=== PATIENT | male | born 1955 | race Caucasian/White ===

== ENCOUNTER 2023-01-25 12:46 | Outpatient (CLI) | payer MEDICARE, SELFPAY ==
--- NOTE | ~2023-01-25 | XR_ITS ---
EXAMINATION: XR lumbar spine 2-3V DATE: 01/25/2023 13:25 INDICATION: Low back pain TECHNIQUE: Anteroposterior and lateral views of the lumbar spine, and cone-down lateral view of the l umbosacral junction were obtained. COMPARISON: None. FINDINGS: Bone alignment is normal. There is no fracture. There is severe loss of intervertebral disc space height at L4-5 and moderate loss of intervertebral disc space height throughout the remainder of the lumbar spine. The vertebral body heights are maintained. There is severe facet joint osteoarth ritis of the lower lumbar spine. Small degenerative osteophytes project from the anterior endplates o f multiple vertebral bodies. A moderate volume of colonic stool is present. Pleural calcification is seen at the right lung base. IMPRESSION: 1. Severe lumbar spondylosis without acute findings. Reviewed, dictated and finalized at location A.
--- NOTE | ~2023-01-25 | XR_ITS ---
EXAMINATION:XR_[id number]_CR DATE: 01/25/2023 13:25 INDICATION: Neck pain TECHNIQUE: AP, lateral, and odontoid views of the cervical spine are provided. COMPARISON: None FINDINGS: There are 2 mm of retrolisthesis of C5 on C6. The odontoid process is intact. No fracture i s identified. Vertebral body heights are maintained. There is severe loss of intervertebral disc spac e height at C5-C6 and C6-7 and moderate loss of intervertebral disc space height at C3-4. There is mu ltilevel moderate facet and uncovertebral joint osteoarthritis. Prevertebral soft tissues are normal. Degenerative osteophytes project from the anterior endplates of multiple vertebral bodies. IMPRESSION: 1. Severe cervical spondylosis without acute findings. Reviewed, dictated and finalized at location A.
--- NOTE | ~2023-01-25 | CT_ITS ---
EXAMINATION: CT lung screening DATE: 01/25/2023 13:03 INDICATION: Personal history of nicotine dependence, current smoker with 100 pack year history TECHNIQUE: Computed tomography (CT) of the chest was performed without intravenous contrast. The dose -length product (DLP) was 135.46 mGy-cm. Automated exposure control and iterative reconstruction tech [employer] were employed. COMPARISON: None FINDINGS: There is scarring in the lung apices. There is a 2 mm nodule in the left lower lobe on imag e 67. There is a 3 mm nodule in the right lower lobe on image 87. There is a 4 mm nodule of the right middle lobe on image 86. There are patchy groundglass opacities of the right upper lobe. An approxim ately 1.7 cm nonsolid nodule is present on image 36. There is a 2.4 cm nonsolid nodule of the right u pper lobe on image 46. No pleural effusion or pneumothorax. No pathologically enlarged thoracic lymph nodes are identified. The heart size is normal. Calcified coronary artery atherosclerosis is noted. There is moderate thoracic spondylosis. There is a large calcified pleural plaque abutting the right hemidiaphragm which could reflect prior trauma or infection. IMPRESSION: 1. Lung-RADS category 2: Benign appearance or behavior. Continue annual screening with noncontrast lo w-dose chest CT in 12 months. Reviewed, dictated and finalized at location A. IMPRESSION: 1. Lung-RADS category 2: Benign appearance or behavior. Continue annual screeni ng with noncontrast low-dose chest CT in 12 months.
== END 2023-01-25 12:47 ==
PROVIDERS: PCP Emergency Medicine; Visit Provider Emergency Medicine
DX: Z12.2 Encounter for screening for malignant neoplasm of respiratory organs (principal); M54.2 Cervicalgia; M43.02 Spondylolysis, cervical region; M43.06 Spondylolysis, lumbar region; Z87.891 Personal history of nicotine dependence
CPT/HCPCS: 71271; 72040; 72100

== ENCOUNTER 2023-03-27 12:36 | Emergency (ER) | payer MEDICARE, SELFPAY ==
[2023-03-27 12:53] VITALS: BP 115/61; PULSE 72; RESP 18; TEMP 36.8; O2SAT 98
--- NOTE | 2023-03-27 13:11 | ED.WOUNDLAC ---
HPI - Wound/Laceration General Chief Complaint: Wound/Laceration Stated Complaint: finger laceration Time Seen by Provider: 03/27/23 13:06 Source: patient, family () and RN notes reviewed Mode of arrival: ambulatory Limitations: no limitations History of Present Illness HPI narrative: Patient presents today complaining of a laceration to his right thumb that was sustained approximately 1 hour prior to exam when he accidentally cut himself with a razor blade at home. Currently rates his pain 3/10. Patient takes aspirin and Brilinta. Denies numbness or tingling. Related Data Home Medications Medication Instructions Recorded Confirmed aspirin 81 mg tablet,delayed 81 mg PO DAILY 01/17/23 01/26/23 release atorvastatin 40 mg tablet (Lipitor) 40 mg PO DAILY 01/17/23 01/26/23 carvedilol 6.25 mg tablet 6.25 mg PO Q12H 01/17/23 01/26/23 levothyroxine 150 mcg tablet 150 mcg PO DAILY 01/17/23 01/26/23 lisinopril 5 mg tablet 5 mg PO DAILY 01/17/23 01/26/23 omeprazole 20 mg capsule,delayed 20 mg PO DAILY 01/17/23 01/26/23 release ticagrelor 90 mg tablet (Brilinta) 90 mg PO Q12H 01/17/23 01/26/23 Allergies Allergy/AdvReac Type Severity Reaction Status Date / Time No Known Allergies Allergy Verified 01/26/23 11:20 Review of Systems Review of Systems: CONSTITUTIONAL: Denies body aches, fever, chills, or sweats. EYES: Denies visual changes, redness, or discharge. ENT: Denies rhinorrhea, congestion, sore throat, or otalgia. CARDIOVASCULAR: Denies chest pain, palpitations, or edema. RESPIRATORY: Denies cough or dyspnea. GASTROINTESTINAL: Denies abdominal pain, nausea, vomiting, or diarrhea. GENITOURINARY: Denies dysuria or hematuria. SKIN: + right thumb laceration MUSCULOSKELETAL: Denies back pain, joint pain, or myalgia. NEUROLOGIC: Denies headache, numbness, tingling, or weakness. PSYCH: Denies depression or anxiety. [facility] Past Medical History Medical History Arthritis Asthma CAD (coronary artery disease) COPD (chronic obstructive pulmonary disease) GERD (gastroesophageal reflux disease) Heart attack Heart disease History of placement of stent in LAD coronary artery Thyroid disorder Surgical History Surgical History H/O shoulder surgery Family History Family History Other Cerebrovascular accident Depression Diabetes mellitus Social History Social History Smoking status: Current every day smoker Tobacco type: cigarettes Alcohol intake: current Drinks per week: 1 Alcohol use details: beer Substance use: never Substance use type: does not use Lack of Transportation: No Lack of Food: Never True Current Housing: I Have Housing Concerned About Future Housing: No Difficulty Paying Gas/Electric Bills: No Difficulty Paying for Meds: No Currently Unemployed: No Education: High School Diploma/GED Difficulty w/ Childcare or Family Care: No Comments At time of signature, I have reviewed and agree with nursing past medical, surgical, social and family history unless otherwise noted. Please see nursing chart for further information. There is no relevant family history pertinent to the presenting complaint Exam Narrative: GENERAL: Well-appearing, well-nourished, and in no acute distress. HEAD: Normocephalic, atraumatic. EYES: EOMI. No redness or drainage. Conjunctivae normal. ENT: Mucous membranes pink and moist. NECK: Normal AROM. CHEST: No respiratory distress. EXTREMITIES: Normal range of motion. No edema. SKIN: Warm, dry, no rash. Capillary refill normal. Normal skin turgor. 1.5 cm partial-thickness linear laceration to the palmar aspect of the right 1st distal phalanx. Distal sensation intact. Capillary refill normal
[2023-03-27] MEDS: TETANUS,DIPHTHERIA,AC PERTUSSIS ADULT (0.5 ML) BOOSTRIX IM (13:17)
[2023-03-27] MEDS: LIDOCAINE HCL 1% PF INJ 5 ML VIAL 2 ML INFILTRATE (13:26)
== END 2023-03-27 13:44 | disposition home or self-care (01) ==
PROVIDERS: Emergency Provider Nurse Practitioner; PCP Emergency Medicine
DX: S61.011A Laceration without foreign body of right thumb without damage to nail, initial encounter (principal); W26.8XXA Contact with other sharp object(s), not elsewhere classified, initial encounter; Z23 Encounter for immunization; M19.90 Unspecified osteoarthritis, unspecified site; I25.10 Atherosclerotic heart disease of native coronary artery without angina pectoris; J44.9 Chronic obstructive pulmonary disease, unspecified; K21.9 Gastro-esophageal reflux disease without esophagitis; I25.2 Old myocardial infarction; Z95.5 Presence of coronary angioplasty implant and graft; F17.210 Nicotine dependence, cigarettes, uncomplicated; Z79.82 Long term (current) use of aspirin
CPT/HCPCS: 12001; 90471; 90715; 99212; G0463

== ENCOUNTER 2023-04-04 16:16 | Emergency (ER) | payer MEDICARE, SELFPAY ==
[2023-04-04 16:22] VITALS: BP 130/67; PULSE 92; RESP 16; TEMP 36.7; O2SAT 99
--- NOTE | 2023-04-04 16:26 | ED.SKABFB ---
HPI - Skin/Abscess/Foreign Bdy General Chief complaint: Skin/Abscess/Foreign Body Stated complaint: Thumb Rt Hand Time Seen by Provider: 04/04/23 16:25 Source: patient Mode of arrival: ambulatory Limitations: no limitations History of Present Illness HPI narrative: Ramiro is a 67-year-old male patient presenting to the clinic today with complaints of pain around the surgical site of his right thumb. He reports that he cut his right thumb last Monday and had sutures placed here in the clinic. Reports that he cut the sutures out today himself and has some pain to the surgical site. He reports that the site is hard to touch and appears to be discolored. He is concerned that it may be infected. Related Data Home Medications Medication Instructions Recorded Confirmed aspirin 81 mg tablet,delayed 81 mg PO DAILY 01/17/23 01/26/23 release atorvastatin 40 mg tablet (Lipitor) 40 mg PO DAILY 01/17/23 01/26/23 carvedilol 6.25 mg tablet 6.25 mg PO Q12H 01/17/23 01/26/23 levothyroxine 150 mcg tablet 150 mcg PO DAILY 01/17/23 01/26/23 lisinopril 5 mg tablet 5 mg PO DAILY 01/17/23 01/26/23 omeprazole 20 mg capsule,delayed 20 mg PO DAILY 01/17/23 01/26/23 release ticagrelor 90 mg tablet (Brilinta) 90 mg PO Q12H 01/17/23 01/26/23 Allergies Allergy/AdvReac Type Severity Reaction Status Date / Time No Known Allergies Allergy Verified 01/26/23 11:20 Review of Systems Review of Systems: Pertinent positives per HPI. Patient denies any fever, chills, rash, headache, visual changes, dizziness, cough, runny nose, sore throat, shortness of breath, chest pain, palpitations, nausea, vomiting, diarrhea, constipation, abdominal pain, or any urinary issues. [facility] Past Medical History Medical History Arthritis Asthma CAD (coronary artery disease) COPD (chronic obstructive pulmonary disease) GERD (gastroesophageal reflux disease) Heart attack Heart disease History of placement of stent in LAD coronary artery Thyroid disorder Surgical History Surgical History H/O shoulder surgery Family History Family History Other Cerebrovascular accident Depression Diabetes mellitus Social History Social History Smoking status: Current every day smoker Tobacco type: cigarettes Alcohol intake: current Drinks per week: 1 Alcohol use details: beer Substance use: never Substance use type: does not use Lack of Transportation: No Lack of Food: Never True Current Housing: I Have Housing Concerned About Future Housing: No Difficulty Paying Gas/Electric Bills: No Difficulty Paying for Meds: No Currently Unemployed: No Education: High School Diploma/GED Difficulty w/ Childcare or Family Care: No Comments At the time of my signature, I reviewed and agree with the nursing past medical, surgical, social, and family history. There is no relevant family history pertinent to the patient complaint. Exam Narrative: General: Well-developed, well nourished, in no apparent distress Head: Normocephalic, atraumatic. Cardio: Regular rate and rhythm, s1 and s2 normal, no murmur appreciated. Resp: Clear to auscultation bilaterally, no rhonchi, rales, wheezing or rubs. Integumentary: [place], warm, and dry, callused area to the right thumb with mild green discoloration(old bruising appearance) with tenderness to palpation, without redness, erythema, or drainage Course Course Emergency Course: Portions of this record may have been created with voice recognition software. Level of Care: Express Care Visit Vital Signs Vital signs: Vital Signs Temperature 36.7 C 04/04/23 16:22 Pulse Rate 92 04/04/23 16:22 Respiratory Rate 16 04/04/23 16:22 Blood Pressure 130/67 10/3
== END 2023-04-04 16:33 | disposition home or self-care (01) ==
PROVIDERS: Emergency Provider Nurse Practitioner Family; PCP Emergency Medicine
DX: G89.18 Other acute postprocedural pain (principal); M19.90 Unspecified osteoarthritis, unspecified site; I25.10 Atherosclerotic heart disease of native coronary artery without angina pectoris; K21.9 Gastro-esophageal reflux disease without esophagitis; I25.2 Old myocardial infarction; Z95.5 Presence of coronary angioplasty implant and graft; E07.9 Disorder of thyroid, unspecified; F17.210 Nicotine dependence, cigarettes, uncomplicated; Z79.82 Long term (current) use of aspirin
CPT/HCPCS: 99213; G0463

== ENCOUNTER 2025-05-05 13:26 | Emergency (ER) | payer MEDICARE, SELFPAY ==
--- NOTE | ~2025-05-05 | US_ITS ---
EXAMINATION: US venous doppler LE RT, 05/05/2025 14:57 GREENHOUSE ASSISTANT HISTORY: rule out DVT Comparison: None Technique: Lowery-scale and color Doppler images were attempted of the lower saphenofemoral junction, common femoral vein,superficial femoral vein, proximal deep femoral vein, proximal deep femoral vein, popliteal vein and posterior tibial veins. Findings: Deep Venous System:Normal flow, augmentation and compressibility. No echogenic thrombus identified. The contralateral saphenofemoral junction appears unremarkable. Superficial Venous SystemNo superficial thrombophlebitis. Soft tissues: Soft tissues are unremarkable. Impression: Negative for DVT. Reviewed, dictated and finalized at location P. NHOUSE ASSISTANT Impression: Negative for DVT.
[2025-05-05 13:27] VITALS: BP 112/52; PULSE 93; RESP 16; TEMP 36.4; O2SAT 100
--- NOTE | 2025-05-05 19:12 | ED.EXTPRO ---
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 No recent trauma Related Data Home Medications ?Medication ?Instructions ?Recorded ?Confirmed ?Last Taken ?Type aspirin 81 mg tablet,delayed 81 mg PO DAILY 01/17/23 05/18/23 Unknown History release atorvastatin 40 mg tablet (Lipitor) 40 mg PO DAILY 01/17/23 05/18/23 Unknown History carvedilol 6.25 mg tablet 6.25 mg PO Q12H 01/17/23 05/18/23 Unknown History lisinopril 5 mg tablet 5 mg PO DAILY 01/17/23 05/18/23 Unknown History omeprazole 20 mg capsule,delayed 20 mg PO DAILY 01/17/23 05/18/23 Unknown History release ticagrelor 90 mg tablet (Brilinta) 90 mg PO Q12H 01/17/23 05/18/23 Unknown History levothyroxine 50 mcg tablet 50 mcg PO DAILY 05/16/23 05/18/23 Unknown History Allergies Allergy/AdvReac Type Severity Reaction Status Date / Time No Known Allergies Allergy Verified 05/16/23 09:53 Review of Systems Review of Systems: All systems reviewed & are unremarkable except as noted in HPI and below PMFSH Past Medical History Medical History Arthritis Asthma CAD (coronary artery disease) COPD (chronic obstructive pulmonary disease) GERD (gastroesophageal reflux disease) Heart attack Heart disease History of placement of stent in LAD coronary artery Thyroid disorder Surgical History Surgical History H/O shoulder surgery Family History Family History Other Cerebrovascular accident Depression Diabetes mellitus Social History Social History Smoking status: Current every day smoker Tobacco type: cigarettes Alcohol intake: current Drinks per week: 1 Alcohol use details: beer Substance use: never Substance use type: does not use Lack of Transportation: No Lack of Food: Never True Current Housing: I Have Housing Concerned About Future Housing: No Difficulty Paying Gas/Electric Bills: No Difficulty Paying for Meds: No Currently Unemployed: No Education: High School Diploma/GED Difficulty w/ Childcare or Family Care: No Exam Narrative: EXAMINATION OF ORGAN SYSTEMS/BODY AREAS: Constitutional: Vital signs per nursing GENERAL:[No acute distress, non-toxic appearing.] HEAD: Normal with no signs of head trauma. EYES: EOMI, conjunctiva normal ENT: Hearing grossly intact LUNGS: Nonlabored breathing. HEART: [Regular rate and rhythm], normal DP pulse ABD: [Soft], [nontender to palpation] EXT: Normal range of motion, no significant swelling right leg compared to left SKIN: [No rashes or lesions.] NEURO: [Alert and oriented x 3. No gross focal sensory or strength deficits.] PSYCH: Normal affect Course Vital Signs Vital signs: Vital Signs Temperature 97.5 F L 05/05/25 13:27 Pulse Rate 93 05/05/25 13:27 Respiratory Rate 16 05/05/25 13:27 Blood Pressure 112/52 L 05/05/25 13:27 Pulse Oximetry 100 05/05/25 13:27 Oxygen Delivery Room Air 05/05/25 13:27 Temperature 97.5 F L 05/05/25 13:27 Pulse Rate 93 05/05/25 13:27 Respiratory Rate 16 05/05/25 13:27 Blood Pressure 112/52 L 05/05/25 13:27 Pulse Oximetry 100 05/05/25 13:27 Oxygen Delivery Room Air 05/05/25 13:27 [facility] Narrative Medical decision making narrative: Patient presenting here with right leg swelling, concern for DVT. Ultrasound thankfully negative here, findings discussed, stable for discharge with return precautions. Differential Diagnosis Differential Diagnosis: DVT, muscle pull Imaging Data Radiologist's impression: ITS Impressions Venous Doppler Study 05/05/25 15:36 Impression: Negative for DVT. Discharge Plan Discharge Clinical Impression: Acute leg pain Patient Disposition: Home Condition: Stable Instructions: Leg Sprain (ED) Additional Instructions: Please follow up with your PCP; your ultrasound was negative for DVT thankfully. You can come back to the ER for any further issues. Patient Language: Sinhala Prescriptions: No Action mupirocin 2 % ointment 1 applic topical BID 7 Days Qty: 22 0RF carvedilol 6.25 mg tablet 6.25 mg PO Q12H Rx Instructions: must administer with a meal/food lisinopril 5 mg tablet 5 mg PO DAILY Brilinta 90 mg tablet 90 mg PO Q12H atorvastatin [Lipitor] 40 mg tablet 40 mg PO DAILY omeprazole 20 mg capsule,delayed release(DR/EC) 20 mg PO DAILY aspirin 81 mg tablet,delayed release (DR/EC) 81 mg PO DAILY levothyroxine 50 mcg tablet 50 mcg PO DAILY oxycodone-acetaminophen [Percocet] 5-325 mg tablet 1 tablet PO Q6H PRN (Reason: pain) Qty: 30 0RF fluticasone propionate [Flonase Allergy Relief] 50 mcg/actuation spray,suspension 1 - 2 spray intranasal BID Qty: 16 3RF Rx Instructions: administer into each nostril. Aim back/up/out tramadol 50 mg tablet 50 mg PO Q6H PRN (Reason: pain) Qty: 30 1RF Follow-up/Referrals: PHYSICIAN NOT ON STAFF,NONSTAFF [Primary Care Provider]
== END 2025-05-05 16:59 | disposition home or self-care (01) ==
PROVIDERS: Emergency Provider Emergency Medicine
DX: M79.661 Pain in right lower leg (principal); I25.10 Atherosclerotic heart disease of native coronary artery without angina pectoris; J44.9 Chronic obstructive pulmonary disease, unspecified; K21.9 Gastro-esophageal reflux disease without esophagitis; J45.909 Unspecified asthma, uncomplicated; F17.210 Nicotine dependence, cigarettes, uncomplicated
CPT/HCPCS: 93971; 99284